=== PATIENT | female | born 1995 | race American Indian/Alaskan Native ===

== ENCOUNTER 2016-07-16 17:18 | Outpatient (CLI) | payer MEDICAID ==
[2016-07-16] MEDS ORDERED: LACTATED RINGERS 500 ML IV ONE (18:38)
[2016-07-16 20:16] LABS: Urine Drugs of Abuse Note Disclamer
[2016-07-16 20:32] LABS: Bilirubin,Urine NEG (Negative); Blood,Urine NEG (Negative); Ketones,Urine 80 mg/dL (Negative); Leukocyte Esterase,Urine TR (Negative); Mucus,Urine 3+ /HPF; Nitrite,Urine NEG (Negative); Urobilinogen,Urine < 2.0 mg/dL (<2.0)
--- NOTE | 2016-07-17 10:29 | Ultrasound Report ---
OB ULTRASOUND GREATER THAN 14 WEEKS INDICATION: well-being. Premature rupture of membranes. COMPARISON: None similar during this gestation. TECHNIQUE: Transabdominal grayscale ultrasound with Doppler interrogation. Gestation: Bains Position: Cephalic Amniotic Fluid: WNL <24 weeks, Subjective VAL = NA cm Placenta: Anterior Placental Grade: 0 Heart Rate: 149 BPM Cervical length: 3.2 cm (Normal > 3 cm) NEUROANATOMY VISUALIZED: Choroid Plexus Cisterna Magnum Cerebellum Lateral Ventricle ANATOMY VISUALIZED: Stomach Kidneys Bladder Diaphragm 4 Chamber Heart Heart 3 Vessel Cord Abd. Cord Insert SPINE VISUALIZED: Longitudinal Transverse BPD: 5.0 cm = 21 w 1 d HC: 19.0 cm = 21 w 2 d AC: 16.3 cm = 21 w 2 d FL: 3.6 cm = 21 w 2 d HC/AC Ratio: 1.17 Cephalic Index: 80.1 Estimated Weight: 415 grams Clinical age = 21 w 2 d EDC: 11/24/16 US Gest. Age = 21 w 2 d EDC: 11/24/16 CONCLUSION: Single, viable intrauterine gestation with ultrasound estimated age of 21 weeks and 2 days and EDC of 11/24/2016, currently in cephalic lie with details, as above. Thank you for the opportunity to participate in this patient's care.
== END 2016-07-16 21:00 | disposition home or self-care (01) ==
LOC: TRG 17:18
PROVIDERS: ATTEND Obstetrics & Gynecology
DX: O42.912 Preterm premature rupture of membranes, unspecified as to length of time between rupture and onset of labor, second trimester (principal); O47.02 False labor before 37 completed weeks of gestation, second trimester; Z3A.21 21 weeks gestation of pregnancy
CPT/HCPCS: 59025; 76805; 80307; 81001; 96360; 96361

== ENCOUNTER 2020-08-20 20:47 | Emergency (ER) | payer MEDICAID, SELFPAY ==
[2020-08-20 20:54] VITALS: BP 147/89
--- NOTE | 2020-08-20 21:09 | Emergency Department Report ---
Chief Complaint: Dyspnea/Respdistress Stated Complaint: ADELINA - HPI History of Present Illness: 25-year-old morbid obese -[place] female presents to the emergency room reporting intermittent shortness of breath x 4 days and states that she has no smell or taste. Patient reports she works in a [employer] and last Covid test 2 weeks ago. She patient denies any cough. Last menstrual period was 08/08/2020. Denies any fever chills no nausea no vomiting no chest pain. - Exam Vital Signs: Vital Signs 08/20/20 20:50 Temperature 98.7 F Pulse Rate 91 H Respiratory 18 Rate Blood Pressure 147/89 O2 Sat by Pulse 99 Oximetry Physical Exam: Gen: alert oriented NAD morbid obesity Cardic: regular rate and rhythm no murmurs appreciated Resp: Clear to auscultation bilateral no wheezing no rales or rhonchi. Abdomen: Soft nontender nondistended normal bowel sounds. Ambulatory without difficulties MSE screening note: Focused history and physical exam performed. Due to findings the following was ordered: 25-year-old morbid obese -[place] female presents to the emergency room reporting intermittent shortness of breath x 4 days and states that she has no smell or taste. Patient reports she works in a [employer] and last Covid test 2 weeks ago. She patient denies any cough. Last menstrual period was 08/08/2020. Denies any fever chills no nausea no vomiting no chest pain. Discussed with patient that she has a normal examination. Discussed with patient she needs to get Covid testing handout given for Covid sites for of testing. Discussed with patient about her obesity. Referral given for evaluation with Dr. Mooney as well as Dr. Villar nurse practitioner primary care. ED Disposition for MSE Disposition: Z- MED SCREENING EXAM-LEFT Is pt being admited?: No Does the pt Need Aspirin: No Condition: Stable Instructions: COVID-19 Frequently Asked Questions Additional Instructions: Recommend Covid testing. Referrals: FREDIS VILLAR FNP [Referring] - 3-5 Days HARESH MOONEY MD [Staff Physician] - 3-5 Days Forms: Work/School Release Form(ED)
== END 2020-08-20 21:16 | disposition left against medical advice (07) ==
LOC: ED 20:47
DX: R06.02 Shortness of breath (principal); Z53.21 Procedure and treatment not carried out due to patient leaving prior to being seen by health care provider

== ENCOUNTER 2021-05-13 21:31 | Emergency (ER) | payer SELFPAY ==
[2021-05-13 21:35] VITALS: BP 145/91
[2021-05-13] MEDS ORDERED: traMADol 50 MG TAB PO ONE (22:14)
--- NOTE | 2021-05-13 22:20 | Emergency Department Report ---
ED Headache HPI - General Chief Complaint: Headache Stated Complaint: HEADACHE/DIZZINESS Time Seen by Provider: 05/13/21 22:07 - History of Present Illness Initial Comments: Chief complaint headache abdominal pain HPI: This is a 26-year-old female without significant past medical history who presents with headache abdominal pain. Patient had gradual onset of headache right-sided temporal 5 out of 10. She also has menstrual cramping.. She admits to multiple social stressors including financial issues. She recently moved to an apartment after being in hotel for 2 years. She denies domestic violence. Denies suicidal ideation. Took [id number] pain relievers with mild relief. She is currently menstruating. Menses is heavier than normal. Timing/Duration: 24 hours Quality: moderate Head Injury Location: temporal Recent Head Trauma: occasional headaches Associated Symptoms: other (Menstrual cramping) Allergies/Adverse Reactions: Allergies No Known Allergies Allergy (Verified 05/13/21 21:34) Home Medications: Ambulatory Orders Vit-Fe Fumar-FA [ Vitamin] 1 tab PO QDAY #30 tablet 06/14/15 Ferrous Sulfate [Feosol 325 MG tab] 325 mg PO BID #60 tablet 01/11/16 Ibuprofen [Motrin] 800 mg PO Q8HR PRN #30 tablet 01/11/16 Vit Calc,Iron,Folic [ Vitamins] 1 each PO DAILY #30 tablet 01/11/16 traMADoL [Ultram 50 MG tab] 50 mg PO Q6HR PRN #15 tablet 05/13/21 ED Review of Systems ROS: Stated complaint: HEADACHE/DIZZINESS Other details as noted in HPI Comment: All other systems reviewed and negative Constitutional: denies: chills, fever, malaise Respiratory: denies: cough, shortness of breath Gastrointestinal: other (Pelvic cramping) Neurological: headache ED Past Medical Hx - Past Medical History Previous Medical History?: No Hx Hypertension: No Hx Congestive Heart Failure: No Hx Diabetes: No Hx Deep Vein Thrombosis: No Hx Renal Disease: No Hx Sickle Cell Disease: No Hx Seizures: No Hx Asthma: No Hx COPD: No Hx HIV: No - Surgical History Past Surgical History?: No - Family History Family history: diabetes, hypertension, other (Aneurysm) - Social History Smoking Status: Never Smoker Substance Use Type: None - Medications Home Medications: Home Medications Medication Instructions Recorded Confirmed Last Taken Type Vit-Fe Fumar-FA [ 1 tab PO QDAY #30 tablet 06/14/15 01/11/16 11/16/15 00:00 Rx Vitamin] 1 Ferrous Sulfate [Feosol 325 MG tab] 325 mg PO BID #60 tablet 01/11/16 Unknown Rx Ibuprofen [Motrin] 800 mg PO Q8HR PRN #30 tablet 01/11/16 Unknown Rx Vit Calc,Iron,Folic 1 each PO DAILY #30 tablet 01/11/16 Unknown Rx [ Vitamins] traMADoL [Ultram 50 MG tab] 50 mg PO Q6HR PRN #15 tablet 05/13/21 Unknown Rx ED Physical Exam - General Limitations: No Limitations General appearance: alert, in no apparent distress - Head Head exam: Present: atraumatic, normocephalic - Eye Eye exam: Present: normal appearance - ENT ENT exam: Present: mucous membranes moist - Neck Neck exam: Present: normal inspection, full ROM - Respiratory Respiratory exam: Present: normal lung sounds bilaterally. Absent: respiratory distress, wheezes, rales, rhonchi - Cardiovascular Cardiovascular Exam: Present: regular rate, normal rhythm, normal heart sounds. Absent: systolic murmur, diastolic murmur, rubs, gallop - GI/Abdominal GI/Abdominal exam: Present: soft, normal bowel sounds. Absent: distended, tenderness, guarding, rebound - Extremities Exam Extremities exam: Present: normal inspection - Back Exam Back exam: Present: normal inspection - Neurological Exam Neurological exam: Present: alert, oriented X3, CN II-XII intact, normal gait - Expanded Neurological Exam Expanded Patient oriented to: Present: person, place, time Speech: Present: fluid speech Cranial nerves: EOM's Intact: Normal Sensory exam: Upper Extremity Light Touch: Normal Motor strength exam: RUE: 5, LUE: 5, RLE: 5, LLE: 5 Best Eye Response ([place]): (4) open spontaneously Best Motor Response ([place]): (6) obeys commands Best Verbal Response ([place]): (5) oriented [place] Total: 15 - Psychiatric Psychiatric exam: Present: normal affect, normal mood - Skin Skin exam: Present: warm, dry, intact, normal color. Absent: rash ED Course Vital Signs 05/13/21 21:34 Temperature 98.9 F Pulse Rate 93 H Respiratory 18 Rate Blood Pressure 145/91 [Left] O2 Sat by Pulse 98 Oximetry ED Medical Decision Making - Medical Decision Making One. Tension headache no red flags to indicate dangerous headache no fever no evidence of traumatic injury no neurological deficit gradual onset prescribed tramadol 2 dysmenorrhea, menometrorrhagia: Prescribed tramadol refer to assistant activities director Critical care attestation.: If time is entered above; I have spent that time in minutes in the direct care of this critically ill patient, excluding procedure time. ED Disposition Clinical Impression: Tension headache, Dysmenorrhea, Menometrorrhagia Disposition: HOME / SELF CARE / HOMELESS Is pt being admited?: No Does the pt Need Aspirin: No Condition: Stable Instructions: Abnormal Uterine Bleeding, Tension Headache, Adult, [id number] Prescriptions: traMADoL [Ultram 50 MG tab] 50 mg PO Q6HR PRN #15 tablet PRN Reason: Pain Referrals: ANALY PEREZ MD [Staff Physician] - 3-5 Days ARUN HEATON MD [Staff Physician] - 3-5 Days
== END 2021-05-13 22:40 | disposition home or self-care (01) ==
LOC: ED 21:31
DX: G44.209 Tension-type headache, unspecified, not intractable (principal); N94.6 Dysmenorrhea, unspecified; N92.1 Excessive and frequent menstruation with irregular cycle; Z79.899 Other long term (current) drug therapy
CPT/HCPCS: 99283